=== PATIENT | female | born 1960 | race Two or more races ===

== ENCOUNTER → 2018-11-09 | Emergency (ER) | payer OTHER ==
[~2018-11-09] VITALS: Ht 157.5 cm; Wt 86.2 kg
[~2018-11-09] MED LIST: ANTIVERT12.5 MG PO; ASPIR 8181 MG; BICARSIM FORTE125 MG PO; COZAAR50 MG; DOLOGESIC 500-1 EACH PO; OSEL75CA PO; PROTONIX40 M1 PO; SYNTHROID88 MCG; ZOFRAN4 MG PO; ZYNCOF 20-400120 ML PO
== END | disposition home or self-care (01) ==
LOC: ER 15:01
DX: J00 Acute nasopharyngitis [common cold] (principal)